=== PATIENT | female | born 1985 | race Caucasian/White ===

== ENCOUNTER 2017-04-28 20:49 | Emergency (ER) | payer MEDICAID ==
[~2017-04-28] VITALS: Ht 160 cm; Wt 88.5 kg
[2017-04-28] MEDS ORDERED: CEPH-570 PO (21:00)
[2017-04-28 21:27] LABS: *BILIRUBIN,URIN NEGATIVE (NEGATIVE); *BLOOD, URINE 3+ (NEGATIVE); *CLARITY,URINE SLIGHTLY CLOUDY (CLEAR); *COLOR,URINE YELLOW (YELLOW); *KETONES,URINE NEGATIVE (NEGATIVE); *UROBILINOGEN,URINE 0.2 E.U./dl (NORMAL); LEUKOCYTE ESTERASE ,URINE 1+ (NEGATIVE); NITRITE, URINE NEGATIVE (NEGATIVE); PH,URINE 6.5 (5.0-8.0); UGLUCOSE NEGATIVE (NEGATIVE)
[2017-04-28 21:30] LABS: *PROTEIN,URINE 3+ (NEGATIVE)
[2017-04-28 21:40] LABS: BACTERIA,URINE FEW /HPF (NONE SEEN); RBC,URINE 80-100 /HPF (0-3); SQUAMOUS EPITHELIAL CELL,UR MODERATE /HPF (NONE SEEN); WBC,URINE 50-80 /HPF (0-3)
[2017-04-28 21:41] LABS: MUCUS,URINE MODERATE /LPF (0-FEW)
[2017-04-28 22:32] VITALS: BP 118/72
--- NOTE | 2017-04-28 22:32 | NUR ---
Patient discharged to home in stable conditon. Written and verbal after care instructions given. Patient verbalizes understanding of instructions.
== END 2017-04-28 22:33 | disposition home or self-care (01) ==
LOC: ER 20:51
DX: J40 Bronchitis, not specified as acute or chronic (principal); N39.0 Urinary tract infection, site not specified
CPT/HCPCS: 87086; A4663